=== PATIENT | male | born 1945 | race Hispanic/Latino ===

== ENCOUNTER 2024-02-23 06:52 | Emergency (ER) | payer MEDICAID, SELFPAY ==
[2024-02-23 07:23] LABS: #Basophils 0.02 10x3/uL (0.0-0.2); #Monocytes 1.01 10x3/uL (0.0-1.1); #Neutrophils 12.88 10x3/uL (1.5-8.4); %Basophils 0.1 % (0.0-2.0); %Lymphocytes 4.2 % (18.0-47.0); %Monocytes 6.9 % (0.0-10.0); %Neutrophils 88.5 % (40.0-75.0); Hematocrit 61.6 % (38.8-50.0); Mean Corpuscular HGB CONC 29.2 g/dL (32.0-36.0); Mean Corpuscular Volume 106.2 fL (81.2-95.1); Mean Platelet Volume 10.7 fL (7.4-10.4); Platelet Count 312 10x3/uL (150-450); RBC Distribution Width 14.7 % (11.5-14.5); White Blood Cell (WBC) Count 14.6 10x3/uL (3.5-10.5)
[2024-02-23 07:38] LABS: ALT (SGPT) 62 U/L (8-55); AST (SGOT) 37 U/L (5-34); Alkaline Phosphatase 121 U/L (40-110); Anion Gap 36 mmol/L (10-20); BUN (Urea Nitrogen) 54 mg/dL (8.4-25.7); Bilirubin, Total 1.3 mg/dL (0.2-1.2); Calc. Creatinine Clearance 0 mL/min (70-130); Chloride 119 mmol/L (98-107); Estimated GFR 17; Globulin 3.9 g/dL (2.4-3.5); Magnesium 3.5 mg/dL (1.6-2.6); Potassium 3.8 mmol/L (3.5-5.1); Protein, Total 7.9 g/dL (5.8-8.1)
[2024-02-23 07:41] LABS: Acetaminophen Less than 10 mcg/mL (10.0-30.0); Alcohol Less than 10.0 mg/dL (Less than 10); Salicylate Less than 8.0 mg/dL (15.0-30.0)
[2024-02-23 07:42] LABS: CK (CPK) 3357 U/L (30-200); Phosphorus 5.5 mg/dL (2.3-4.7)
[2024-02-23 07:44] LABS: Troponin I 0.087 ng/mL (< 0.028)
[2024-02-23 07:58] LABS: Lipase 2421 U/L (8-78)
[2024-02-23 08:02] LABS: Carbon Dioxide 9 mmol/L (23-31); Glucose 1233 mg/dL (83-110); Sodium 160 mmol/L (136-145)
[2024-02-23] MEDS ORDERED: Cefepime 2 GM VIAL ONE (08:27)
[2024-02-23] MEDS ORDERED: INSULIN REGULAR IN 0.9 % NACL 100 ML ONE (08:27)
[2024-02-23] MEDS ORDERED: NS 0.9% w/ 20 MEQ KCL 1,000 ML ONE ×2 (08:27→14:21)
[2024-02-23 09:08] LABS: Actual Bicarbonate (HCO3v) 11.1 mEq/L (22-28); Analyzer IN Cardio CS ER; Base Excess -15.9 mEq/L (-2 - +2); Calcium, Ionized (venous) 1.33 mmol/L (1.16-1.32); Chloride (VBG) 123 mmol/L (98-106); Critical Notified Whom: JONAN1; Hematocrit-VBG 51 % (42.0-52.0); Hemoglobin (Hb) 17.5 g/dL (12.6-17.4); Potassium (VBG) 3.67 mmol/L (3.70-5.30); Puncture Site Other Site; RapidComm Collect By LAB; Sodium 158 mmol/L (133-146); pH (venous) 7.172 (7.32-7.43)
[2024-02-23 09:10] LABS: Influenza A by NAA Not Detected (NotDetected); Influenza B by NAA Not Detected (NotDetected); RSV by NAA Not Detected (NotDetected); SARS-CoV-2 NAA Rapid Test Not Detected (NotDetected)
[2024-02-23] MEDS ORDERED: Vancomycin HCl 500 MG VIAL ONE (09:38)
[2024-02-23] MEDS ORDERED: Acetaminophen 325 MG Suppository ONE (09:39)
[2024-02-23 09:50] LABS: Bilirubin Neg (Negative); Blood, Urine 250 (Negative); Clarity Clear (Clear); Glucose, Urine (Dipstick) >=1000 mg/dL (Negative); Ketone, Urine 15 mg/dL (Negative); Leukocyte Negative (Negative); Nitrite Negative (Negative); Protein, Urine (Dipstick) 30 mg/dl (Neg-Trace); Specific Gravity, Urine 1.015 (1.005-1.030); Urobilinogen Normal mg/dL (Less than 2)
[2024-02-23 09:58] LABS: Amphetamine Not Detected (NotDetected); Barbiturates Screen Not Detected (NotDetected); Benzodiazepine Screen Not Detected (NotDetected); Cocaine Metabolite Screen Not Detected (NotDetected); Methadone Not Detected (NotDetected); Methamphetamine Not Detected (NotDetected); Opiate Screen Not Detected (NotDetected); Oxycodone Screen Not Detected (NotDetected); Phencyclidine (PCP) Not Detected (NotDetected); THC/Cannabinoid Screen Not Detected (NotDetected); Tricyclic Screen Not Detected (NotDetected)
[2024-02-23 10:08] LABS: Anion Gap 29 mmol/L (10-20); BUN (Urea Nitrogen) 52 mg/dL (8.4-25.7); Calc. Creatinine Clearance 0 mL/min (70-130); Calcium 9.6 mg/dL (7.8-10.44); Carbon Dioxide 10 mmol/L (23-31); Chloride 130 mmol/L (98-107); Estimated GFR 21; Glucose 1033 mg/dL (83-110); Potassium 3.5 mmol/L (3.5-5.1); Sodium 165 mmol/L (136-145)
[2024-02-23 10:12] LABS: Bacteria/HPF 3+ HPF (None Seen); CAUTI Indications for Culture Alt mental st,lethar; Squamous Epithelial 0-3 HPF (0-3); Transitional Epithelial 0-3 HPF (None Seen); WBC/HPF 0-3 HPF (0-3)
[2024-02-23 10:13] LABS: Urine Culture Reflex No No
[2024-02-23 11:40] LABS: Anion Gap 22 mmol/L (10-20); BUN (Urea Nitrogen) 50 mg/dL (8.4-25.7); Calc. Creatinine Clearance 0 mL/min (70-130); Calcium 9.5 mg/dL (7.8-10.44); Carbon Dioxide 12 mmol/L (23-31); Chloride 134 mmol/L (98-107); Estimated GFR 24; Glucose 877 mg/dL (83-110); Potassium 3.4 mmol/L (3.5-5.1); Sodium 165 mmol/L (136-145)
[2024-02-23] MEDS ORDERED: Azithromycin 500 MG VIAL ONE ×2 (12:51→13:15)
[2024-02-23 14:05] LABS: Anion Gap 19 mmol/L (10-20); BUN (Urea Nitrogen) 49 mg/dL (8.4-25.7); Calc. Creatinine Clearance 0 mL/min (70-130); Calcium 9.7 mg/dL (7.8-10.44); Carbon Dioxide 14 mmol/L (23-31); Chloride 137 mmol/L (98-107); Estimated GFR 28; Glucose 768 mg/dL (83-110); Potassium 3.6 mmol/L (3.5-5.1); Sodium 166 mmol/L (136-145)
[2024-02-23 15:57] LABS: Anion Gap 18 mmol/L (10-20); BUN (Urea Nitrogen) 48 mg/dL (8.4-25.7); Calc. Creatinine Clearance 0 mL/min (70-130); Calcium 9.3 mg/dL (7.8-10.44); Carbon Dioxide 15 mmol/L (23-31); Chloride 139 mmol/L (98-107); Estimated GFR 31; Glucose 718 mg/dL (83-110); Potassium 3.6 mmol/L (3.5-5.1); Sodium 168 mmol/L (136-145)
== END 2024-02-23 16:40 | disposition short-term general hospital (02) ==
LOC: CSHERS 06:52
DX: R41.82 Altered mental status, unspecified (principal); J18.9 Pneumonia, unspecified organism; K85.90 Acute pancreatitis without necrosis or infection, unspecified; E11.10 Type 2 diabetes mellitus with ketoacidosis without coma; Z55.6 Problems related to health literacy
CPT/HCPCS: 0241U; 36415; 36416; 51702; 70450; 71045; 71250; 72125; 74177; 76705; 80053; 80306; 80307; 81001; 82010; 82140; 82550; 82805; 83690; 83735; 84100; 84443; 84478; 84484; 85025; 87040; 87086; 93005; 94760; 96374; 96375; J0456; J0692; J1815; J3370; J3480